=== PATIENT | female | born 1965 | race Asian ===

== ENCOUNTER 2018-03-03 15:04 | Emergency (ER) | payer BC ==
--- NOTE | 2018-03-03 15:31 | UC ---
Skin Complaint HPI - HPI Summary HPI Summary: 52 yo female presents with tick bite to left shoulder first noticed yesterday. She thinks the tick was on her for about 10-14 days. She called her PCP who called her in 200mg of doxycycline last night and then told her to follow up today at urgent care as he had no available appointments. Pt is most concerned if she develops signs of lyme disease such as a bull's eye rash because she is leaving to go back to [facility] in 3 weeks and will not be back in the [place] for about 6 months. Denies fever, chills, headache, myalgias, or rash. - History of Current Complaint Time Seen by Provider: 03/03/18 15:31 Stated Complaint: TICK BITE Hx Obtained From: Patient - Allergy/Home Medications Allergies/Adverse Reactions: Allergies Allergy/AdvReac Type Severity Reaction Status Date / Time No Known Allergies Allergy Verified 03/03/18 15:40 Review of Systems Constitutional: Negative Skin: Other - Tick bite left shoulder Respiratory: Negative Cardiovascular: Negative Gastrointestinal: Negative Neurovascular: Negative Musculoskeletal: Negative Neurological: Negative Psychological: Negative All Other Systems Reviewed And Are Negative: Yes PMH/Surg Hx/FS Hx/Imm Hx - Additional Past Medical History Additional PMH: None Previously Healthy: Yes - Surgical History Surgical History: None - Family History Known Family History: Positive: None - Social History Occupation: Employed Full-time Lives: With Family Alcohol Use: Occasionally Substance Use Type: None Smoking Status (MU): Never Smoked Tobacco Physical Exam - Summary Physical Exam Summary: GENERAL: NAD. WDWN. No pain distress. SKIN: Left shoulder: 3mm area of mild erythema with central small scab. No streaking, bleeding, or drainage. NECK: Supple. Nontender. No lymphadenopathy. CHEST: No accessory muscle use. Breathing comfortably and in no distress. CV: RRR. Without m/r/g. NEURO: Alert. CN II-XII grossly intact. PSYCH: Age appropriate behavior. Triage Information Reviewed: Yes Vital Signs: Vital Signs: Temp Pulse Resp BP Pulse Ox 99.2 F 71 18 139/78 98 03/03/18 15:41 03/03/18 15:41 03/03/18 15:41 03/03/18 15:41 03/03/18 15:41 Course/Dx - Course Course Of Treatment: Tick bite to left shoulder. Pt has tick with her and is very engorged. Will provide her with 3 weeks of doxycycline for lyme treatment and advise her to wait and see if she develops signs and symptoms such as a the bullseye rash. - Diagnoses Provider Diagnoses: Tick bite left shoulder Discharge - Sign-Out/Discharge Documenting (check all that apply): Discharge/Admit/Transfer - Discharge Plan Condition: Stable Disposition: HOME Prescriptions: DOXYcycline CAP(*) [DOXYcycline 100MG CAP(*)] 100 mg PO BID #42 cap Patient Education Materials: Lyme Disease (ED), Tick Bite (ED) Referrals: Gurpreet Schroeder MD [Primary Care Provider] - Additional Instructions: If you develop a fever, shortness of breath, chest pain, new or worsening symptoms - please call your PCP or go to the ED. Your blood pressure was high at todays visit. Please see your primary provider within 4 weeks for recheck and re-evaluation. - Billing Disposition and Condition Condition: STABLE Disposition: HOME
[2018-03-03 15:47] VITALS: BP 139/78
== END 2018-03-03 16:20 | disposition home or self-care (01) ==
LOC: UCEAST 15:04
DX: S40.262A Insect bite (nonvenomous) of left shoulder, initial encounter (principal); W57.XXXA Bitten or stung by nonvenomous insect and other nonvenomous arthropods, initial encounter; Y93.9 Activity, unspecified; Y92.9 Unspecified place or not applicable
CPT/HCPCS: 99212; G0463